=== PATIENT | female | born 1940 | race Caucasian/White ===

== ENCOUNTER 2017-09-11 12:40 | Outpatient (CLI) | payer MEDICARE ==
--- NOTE | 2017-09-11 15:34 | MMO ---
BILATERAL SCREENING MAMMOGRAM: Date: 09/11/17 INDICATION: Annual exam. COMPARISON: Prior exam dated 07/10/15. FINDINGS: Interpretation of this exam was assisted with computer-aided detection. The breast parenchyma is heterogeneously dense, which limits the sensitivity of mammography. There ar e benign-appearing calcifications within both breasts. No suspicious mass, cluster of microcalcifications, or area of architectural distortion is evident. IMPRESSION: BIRADS 2: Benign Finding(s) Recommend routine annual mammographic screening. POS: [facility]
== END 2017-09-11 12:41 | disposition home or self-care (01) ==
LOC: MAMMO 12:40
PROVIDERS: ATTEND Internal Medicine Geriatric Medicine
DX: Z12.31 Encounter for screening mammogram for malignant neoplasm of breast (principal)
CPT/HCPCS: 77067; G0202

== ENCOUNTER 2017-12-04 12:12 | Outpatient (CLI) | payer MEDICARE ==
--- NOTE | 2017-12-04 14:04 | ULT ---
CAROTID ULTRASOUND: HISTORY: Syncope. COMPARISON: None. TECHNIQUE: Meredith-scale, color-flow, and Doppler imaging with spectral wave-form was performed of the carotid and vertebral arteries. FINDINGS: RIGHT CAROTID: No significant atherosclerotic disease. A small amount of calcified plaque in the ri ght carotid bifurcation is noted. The peak systolic velocity of the common carotid artery is 96 cm p er second. The peak systolic velocity of the internal carotid artery is 105 cm per second. Systolic ICA/CCA ratio is 1.1. LEFT CAROTID: No significant atherosclerotic disease. There is a small amount of calcified plaque i n the left carotid bifurcation. The peak systolic velocity of the common carotid artery is 140 cm pe r second. The peak systolic velocity of the internal carotid artery is 107 cm per second. Systolic ICA/CCA ratio is 0.76. Antegrade flow in both vertebral arteries. IMPRESSION: There is no Meredith scale evidence of significant atherosclerotic disease in the common carotid artery. There is elevation of the peak systolic velocity of the left common carotid artery, suggesting moder ate (50%-69%) stenosis. Better interrogation with CT angiogram of the neck is recommended. POS: CAS[facility]IRO
== END 2017-12-04 12:13 | disposition home or self-care (01) ==
LOC: ULT 12:12
PROVIDERS: ATTEND Internal Medicine Geriatric Medicine
DX: R55 Syncope and collapse (principal); R51 Headache; R42 Dizziness and giddiness; I10 Essential (primary) hypertension; R00.2 Palpitations; R93.8 Abnormal findings on diagnostic imaging of other specified body structures
CPT/HCPCS: 93880

== ENCOUNTER 2018-10-02 13:46 | Outpatient (CLI) | payer MEDICARE ==
--- NOTE | 2018-10-02 18:44 | BD ---
BONE DENSITOMETRY USING DEXA: Date: 10/02/18 HISTORY: Postmenopausal screening for osteoporosis. FINDINGS: Lumbar Spine: BMD (g/cm2) L1 1.320 T-Score: 3.0 Z-Score: 5.2 L2 1.319 T-Score: 2.6 Z-Score: 5.1 L3 1.370 T-Score: 2.6 Z-Score: 5.2 L4 1.420 T-Score: 3.3 Z-Score: 6.0 L1-L4 1.360 T-Score: 2.8 Z-Score: 5.4 Femoral Neck: 0.613 T-Score: -2.1 Z-Score: 0.0 Total Femur: 0.880 T-Score: -0.5 Z-Score: 1.4 IMPRESSION: Osteopenia. POS: OFF
== END 2018-10-02 13:47 | disposition home or self-care (01) ==
LOC: BICMAMMO 13:46
PROVIDERS: ATTEND Internal Medicine
DX: Z12.31 Encounter for screening mammogram for malignant neoplasm of breast (principal); Z13.820 Encounter for screening for osteoporosis; M85.859 Other specified disorders of bone density and structure, unspecified thigh; Z78.0 Asymptomatic menopausal state; Z80.3 Family history of malignant neoplasm of breast
CPT/HCPCS: 77063; 77067; 77080

== ENCOUNTER 2019-03-05 12:06 | Outpatient (CLI) | payer MEDICARE ==
--- NOTE | 2019-03-05 13:19 | ULT ---
BILATERAL CAROTID DUPLEX ULTRASOUND: HISTORY: Left carotid stenosis. TECHNIQUE: Meredith scale ultrasound with color flow and spectral Doppler imaging of the extracranial carotid artery systems was performed bilaterally. FINDINGS: There is plaque formation of the cardiac bulbs on either side. The peak systolic velocity in the right ICA measures 94 cm/s with an end-diastolic velocity of 25 cm/ s and a systolic ratio of 0.77. The peak systolic velocity in the left ICA measures 77 cm/s with an end-diastolic velocity of 21 cm/s and a systolic ratio of 0.67. Flow in both vertebral arteries remains antegrade. IMPRESSION: No evidence of hemodynamically significant stenosis. POS: [facility]
== END 2019-03-05 12:07 | disposition home or self-care (01) ==
LOC: BICULT 12:06
PROVIDERS: ATTEND Internal Medicine
DX: I65.22 Occlusion and stenosis of left carotid artery (principal)
CPT/HCPCS: 93880